=== PATIENT | female | born 1935 | race Caucasian/White ===

== ENCOUNTER 2021-08-14 12:50 | Outpatient (CLI) | payer MEDICARE, BC | END 2021-08-14 12:51 | disposition home or self-care (01) | LOC: CSHMRI 12:50 | PROVIDERS: ATTEND Orthopaedic Surgery Hand Surgery | DX: M87.038 Idiopathic aseptic necrosis of left carpus (principal) ==

== ENCOUNTER 2021-10-11 21:13 | Inpatient (IN) | payer MEDICARE, BC ==
[2021-10-11 21:42] LABS: ALT (SGPT) 12 U/L (8-55); AST (SGOT) 13 U/L (5-34); Alkaline Phosphatase 56 U/L (40-110); Anion Gap 12 mmol/L (10-20); BUN (Urea Nitrogen) 21 mg/dL (9.8-20.1); Bilirubin, Total 0.2 mg/dL (0.2-1.2); Calc. Creatinine Clearance 0 mL/min (70-130); Calcium 9.2 mg/dL (7.8-10.44); Carbon Dioxide 26 mmol/L (23-31); Chloride 104 mmol/L (98-107); Globulin 3.5 g/dL (2.4-3.5); Glucose 108 mg/dL (83-110); Potassium 4.1 mmol/L (3.5-5.1); Protein, Total 7.5 g/dL (5.8-8.1); Sodium 138 mmol/L (136-145)
[2021-10-11 21:47] LABS: #Eosinphils 0.2 10x3/uL (0.0-0.5); #Monocytes 0.9 10x3/uL (0.0-1.1); #Neutrophils 5.4 10x3/uL (1.5-8.4); %Basophils 0.3 % (0.0-2.0); %Eosinophils 1.6 % (0.0-6.0); %Monocytes 9.7 % (0.0-10.0); Hemoglobin 13.2 g/dL (12.0-15.5); Mean Corpuscular Hemoglobin 30.7 pg (27.0-33.0); Mean Platelet Volume 9.8 fl (7.4-10.4); Platelet Count 231 10x3/uL (150-450); RBC Distribution Width 13.7 % (11.5-14.5); White Blood Cell (WBC) Count 9.4 10x3/uL (3.5-10.5)
[2021-10-11] MEDS ORDERED: Aspirin Chewable 81 MG TAB ONE (22:12)
[2021-10-11] MEDS ORDERED: Guaifenesin DM 100-10/5 ML UDCUP PO PRN (22:52)
[2021-10-11] MEDS ORDERED: Ondansetron PF 4 MG/2 ML Vial IVP PRN (22:52)
[2021-10-11] MEDS ORDERED: Acetaminophen 325 MG TAB PO PRN (22:52)
[2021-10-11] MEDS ORDERED: hydrALAZINE 20 MG/ML VIAL SLOW IVP PRN (22:52)
[2021-10-11] MEDS ORDERED: Calcium Carbonate 500 MG ChewTAB PO PRN (22:52)
[2021-10-11] MEDS ORDERED: Senokot S 8.6-50 MG TAB PO PRN (22:52)
[2021-10-11] MEDS ORDERED: Sodium Chloride 0.9% 500 ML IV SCH (23:00)
[2021-10-12 01:25] VITALS: BMI 32.7
[2021-10-12] MEDS: Zolpidem Tartrate 5 MG TAB PO PRN ×2 (02:15→20:11)
[2021-10-12 06:12] LABS: Anion Gap 11 mmol/L (10-20); BUN (Urea Nitrogen) 14 mg/dL (9.8-20.1); Calc. Creatinine Clearance 87 mL/min (70-130); Calcium 8.4 mg/dL (7.8-10.44); Carbon Dioxide 26 mmol/L (23-31); Cardiac Risk 3.2 (Less than 4.5); Chloride 106 mmol/L (98-107); Cholesterol 186 mg/dl (< 200 Desired); Glucose 95 mg/dL (83-110); HDL Cholesterol 59 mg/dL (>60 Neg Risk); LDL Cholesterol, Calculated 115 mg/dL; Potassium 3.9 mmol/L (3.5-5.1); Sodium 139 mmol/L (136-145); Triglycerides 59 mg/dL (Less than 150)
[2021-10-12] MEDS ORDERED: Carvedilol 12.5 MG TAB PO SCH (08:00)
[2021-10-12] MEDS ORDERED: Enoxaparin Sodium 40 MG/0.4 ML SYRINGE SC SCH (09:00)
[2021-10-12] MEDS ORDERED: Aspirin 81 mg Enteric Coated Tablet PO SCH (09:00)
[2021-10-12] MEDS ORDERED: Carvedilol 25 MG TAB PO SCH (09:00)
[2021-10-12] MEDS: Losartan Potassium 50 MG TAB PO SCH (09:14)
[2021-10-12] MEDS: Amlodipine 5 MG TAB PO SCH (09:14)
[2021-10-12] MEDS: Carvedilol 25 MG TAB PO SCH (17:08)
[2021-10-12] MEDS: Apixaban 5 MG TAB PO SCH (20:11)
[2021-10-12] MEDS ORDERED: Enoxaparin Sodium 80 MG/0.8 ML SYRINGE SC SCH (21:00)
[2021-10-12] MEDS ORDERED: Rosuvastatin 20 MG TAB PO SCH (21:00)
[2021-10-12 21:54] LABS: SARS-CoV-2 PCR by NAA Not Detected (NotDetected)
[2021-10-13] MEDS: hydrALAZINE 20 MG/ML VIAL SLOW IVP PRN ×2 (06:10→14:22)
[2021-10-13] MEDS ORDERED: FLU VACC QS2021-22(65YR UP)/PF 240 MCG/0.7 ML SYRINGE IM ONE (09:00)
[2021-10-13] MEDS ORDERED: Valsartan 80 MG TAB PO SCH (09:30)
[2021-10-13] MEDS: Carvedilol 25 MG TAB PO SCH (10:31)
[2021-10-13] MEDS: Apixaban 5 MG TAB PO SCH (10:31)
[2021-10-13] MEDS: Losartan Potassium 50 MG TAB PO SCH (10:32)
[2021-10-13] MEDS: Amlodipine 5 MG TAB PO SCH (10:32)
[2021-10-13 15:26] VITALS: BP 164/68
[2021-10-13 17:18] VITALS: TEMP 97.6
[2021-10-14] MEDS ORDERED: Amlodipine 10 MG TAB PO SCH (09:00)
[2021-10-14] MEDS ORDERED: Valsartan 80 MG TAB PO SCH (09:00)
== END 2021-10-13 17:30 | disposition home or self-care (01) | DRG 65 ==
LOC: CSHERS 21:13 → CSHTELE 22:52 → UNDOADMOB 10-12 00:30 → CSHTELE 10-12 00:30 → OBSVTOIN 10-13 09:47
PROVIDERS: ADMIT Student in an Organized Health Care Education/Training Program; ATTEND Physician Assistant
DX: I63.9 Cerebral infarction, unspecified (principal); I42.8 Other cardiomyopathies; I50.22 Chronic systolic (congestive) heart failure; Z20.822 Contact with and (suspected) exposure to COVID-19; R47.01 Aphasia; M79.7 Fibromyalgia; R47.1 Dysarthria and anarthria; R29.701 NIHSS score 1; G47.00 Insomnia, unspecified; M54.2 Cervicalgia; M50.10 Cervical disc disorder with radiculopathy, unspecified cervical region; R32 Unspecified urinary incontinence; M19.90 Unspecified osteoarthritis, unspecified site; G83.21 Monoplegia of upper limb affecting right dominant side; R29.810 Facial weakness; I16.0 Hypertensive urgency; I11.0 Hypertensive heart disease with heart failure; E78.5 Hyperlipidemia, unspecified; E03.9 Hypothyroidism, unspecified; I08.0 Rheumatic disorders of both mitral and aortic valves; I48.0 Paroxysmal atrial fibrillation; G89.29 Other chronic pain; F41.9 Anxiety disorder, unspecified; M54.50 Low back pain, unspecified; F32.A Depression, unspecified; Z79.899 Other long term (current) drug therapy; Z98.1 Arthrodesis status; Z90.710 Acquired absence of both cervix and uterus; Z79.82 Long term (current) use of aspirin
CPT/HCPCS: 36415; 36416; 70450; 70551; 80048; 80053; 80061; 80307; 84443; 84484; 85025; 93005; 93306; 93880; 96372; 96374; G0378; J0360; J1650; J7030; U0003; U0005

== ENCOUNTER 2022-11-24 09:16 | Emergency (ER) | payer MEDICARE, BC ==
[2022-11-24] MEDS ORDERED: Iopamidol 300 61% 100 ML VIAL FS ONE (11:31)
[2022-11-24 13:19] LABS: #Monocytes 1.4 10x3/uL (0.0-1.1); #Neutrophils 8.9 10x3/uL (1.5-8.4); %Basophils 0.2 % (0.0-2.0); %Eosinophils 0.1 % (0.0-6.0); %Lymphocytes 14.1 % (18.0-47.0); %Monocytes 11.3 % (0.0-10.0); Hemoglobin 12.5 g/dL (12.0-15.5); Mean Corpuscular HGB CONC 32.7 g/dL (32.0-36.0); Mean Corpuscular Hemoglobin 29.9 pg (27.0-33.0); Mean Corpuscular Volume 91.4 fl (81.6-98.3); Mean Platelet Volume 10.7 fl (7.4-10.4); Platelet Count 163 10x3/uL (150-450); RBC Distribution Width 13.8 % (11.5-14.5); Red Blood Cell (RBC) Count 4.18 10x6/uL (3.90-5.03)
[2022-11-24 13:48] LABS: ALT (SGPT) 19 U/L (8-55); AST (SGOT) 20 U/L (5-34); Albumin 3.7 g/dL (3.4-4.8); Alkaline Phosphatase 47 U/L (40-110); Anion Gap 15 mmol/L (10-20); BUN (Urea Nitrogen) 12 mg/dL (9.8-20.1); Bilirubin, Total 0.6 mg/dL (0.2-1.2); Calc. Creatinine Clearance 0 mL/min (70-130); Calcium 8.8 mg/dL (7.8-10.44); Carbon Dioxide 25 mmol/L (23-31); Chloride 102 mmol/L (98-107); Estimated GFR 89; Globulin 3.3 g/dL (2.4-3.5); Glucose 106 mg/dL (83-110); Lipase 15 U/L (8-78); Potassium 3.4 mmol/L (3.5-5.1); Sodium 139 mmol/L (136-145)
[2022-11-24 15:03] LABS: Bilirubin Neg (Negative); Blood, Urine 25 (Negative); Clarity Clear (Clear); Glucose, Urine (Dipstick) Normal (Negative); Ketone, Urine 150 mg/dL (Negative); Leukocyte Negative (Negative); Nitrite Negative (Negative); Protein, Urine (Dipstick) 30 mg/dl (Neg-Trace)
[2022-11-24 16:07] LABS: WBC/HPF 0-3 HPF (0-3)
[2022-11-24 16:12] LABS: Bacteria/HPF 1+ HPF (None Seen); Squamous Epithelial 0-3 HPF (0-3)
== END 2022-11-24 17:06 | disposition home or self-care (01) ==
LOC: CSHERS 09:16
DX: K59.00 Constipation, unspecified (principal); K21.9 Gastro-esophageal reflux disease without esophagitis; E78.5 Hyperlipidemia, unspecified; I10 Essential (primary) hypertension
CPT/HCPCS: 74177; 80053; 81003; 81015; 83690; 85025; Q9967

== ENCOUNTER 2023-02-08 13:05 | Emergency (ER) | payer MEDICARE, BC ==
[2023-02-08 15:16] LABS: Bilirubin Neg (Negative); Blood, Urine 10 (Negative); Clarity Clear (Clear); Glucose, Urine (Dipstick) Normal (Negative); Ketone, Urine Negative (Negative); Leukocyte Negative (Negative); Nitrite Negative (Negative); Protein, Urine (Dipstick) Negative (Neg-Trace); Specific Gravity, Urine 1.005 (1.005-1.030); Urobilinogen Normal mg/dL (Less than 2)
[2023-02-08 15:38] LABS: Bacteria/HPF Rare-Few HPF (None Seen); RBC/HPF 0-3 HPF (0-3); Squamous Epithelial 0-3 HPF (0-3); WBC/HPF 0-3 HPF (0-3)
[2023-02-08 20:30] LABS: #Monocytes 1.1 10x3/uL (0.0-1.1); #Neutrophils 5.6 10x3/uL (1.5-8.4); %Basophils 0.2 % (0.0-2.0); %Eosinophils 0.4 % (0.0-6.0); %Lymphocytes 26.1 % (18.0-47.0); %Monocytes 12.4 % (0.0-10.0); %Neutrophils 60.5 % (40.0-75.0); Hemoglobin 12.1 g/dL (12.0-15.5); Mean Corpuscular HGB CONC 32.3 g/dL (32.0-36.0); Mean Corpuscular Hemoglobin 29.4 pg (27.0-33.0); Mean Platelet Volume 10.3 fl (7.4-10.4); Platelet Count 244 10x3/uL (150-450); RBC Distribution Width 16.3 % (11.5-14.5); Red Blood Cell (RBC) Count 4.12 10x6/uL (3.90-5.03); White Blood Cell (WBC) Count 9.2 10x3/uL (3.5-10.5)
[2023-02-08 20:42] LABS: ALT (SGPT) 23 U/L (8-55); AST (SGOT) 26 U/L (5-34); Albumin 3.3 g/dL (3.4-4.8); Alkaline Phosphatase 60 U/L (40-110); Anion Gap 13 mmol/L (10-20); BUN (Urea Nitrogen) 16 mg/dL (9.8-20.1); Bilirubin, Total 0.4 mg/dL (0.2-1.2); CK (CPK) 77 U/L (29-168); Calc. Creatinine Clearance 0 mL/min (70-130); Calcium 8.8 mg/dL (7.8-10.44); Carbon Dioxide 31 mmol/L (23-31); Chloride 100 mmol/L (98-107); Estimated GFR 83; Globulin 3.4 g/dL (2.4-3.5); Glucose 128 mg/dL (83-110); Protein, Total 6.7 g/dL (5.8-8.1); Sodium 141 mmol/L (136-145)
[2023-02-08] MEDS ORDERED: Potassium Chloride 20 MEQ TAB ONE (22:33)
== END 2023-02-08 22:47 | disposition home or self-care (01) ==
LOC: CSHERS 13:05
DX: S22.089A Unspecified fracture of T11-T12 vertebra, initial encounter for closed fracture (principal); S63.502A Unspecified sprain of left wrist, initial encounter; I48.91 Unspecified atrial fibrillation; K21.9 Gastro-esophageal reflux disease without esophagitis; I10 Essential (primary) hypertension; Z79.899 Other long term (current) drug therapy; Z79.01 Long term (current) use of anticoagulants; W19.XXXA Unspecified fall, initial encounter
CPT/HCPCS: 36415; 70450; 72128; 80053; 81001; 82550; 85025

== ENCOUNTER 2023-02-13 14:06 | Emergency (ER) | payer MEDICARE, BC ==
[2023-02-13] MEDS ORDERED: Acetaminophen 500 MG TAB ONE (15:57)
[2023-02-13 16:26] LABS: Bilirubin Neg (Negative); Blood, Urine 10 (Negative); Clarity Slightly Cloudy (Clear); Glucose, Urine (Dipstick) Normal (Negative); Ketone, Urine Negative (Negative); Leukocyte Negative (Negative); Nitrite Negative (Negative); Protein, Urine (Dipstick) 15 mg/dl (Neg-Trace)
[2023-02-13 16:48] LABS: Bacteria/HPF 1+ HPF (None Seen); Mucous/LPF Rare LPF (<2+); RBC/HPF 0-3 HPF (0-3); WBC/HPF 0-3 HPF (0-3)
[2023-02-13 19:33] LABS: #Eosinphils 0.1 10x3/uL (0.0-0.5); #Monocytes 1.3 10x3/uL (0.0-1.1); #Neutrophils 6.4 10x3/uL (1.5-8.4); %Basophils 0.3 % (0.0-2.0); %Eosinophils 0.9 % (0.0-6.0); %Lymphocytes 25.8 % (18.0-47.0); %Monocytes 12.1 % (0.0-10.0); %Neutrophils 60.3 % (40.0-75.0); Hemoglobin 10.6 g/dL (12.0-15.5); Mean Corpuscular HGB CONC 32.2 g/dL (32.0-36.0); Mean Corpuscular Hemoglobin 29.6 pg (27.0-33.0); Mean Corpuscular Volume 91.9 fl (81.6-98.3); Platelet Count 220 10x3/uL (150-450); RBC Distribution Width 16.2 % (11.5-14.5); Red Blood Cell (RBC) Count 3.58 10x6/uL (3.90-5.03); White Blood Cell (WBC) Count 10.6 10x3/uL (3.5-10.5)
== END 2023-02-13 21:30 ==
LOC: CSHERS 14:06
DX: S22.080A Wedge compression fracture of T11-T12 vertebra, initial encounter for closed fracture (principal); K21.9 Gastro-esophageal reflux disease without esophagitis; E78.5 Hyperlipidemia, unspecified; I10 Essential (primary) hypertension; W18.30XA Fall on same level, unspecified, initial encounter
CPT/HCPCS: 36415; 70450; 72125; 72128; 72131; 72170; 81003; 81015; 85025